=== PATIENT | female | born 1985 | race Caucasian/White ===

== ENCOUNTER 2016-09-23 10:49 | Outpatient (CLI) | payer BC ==
[~2016-09-23] VITALS: Ht 165.1 cm; Wt 91.7 kg
[2016-09-23 11:47] VITALS: Ht 165.1 cm; Wt 91.7 kg
[2016-09-23 11:48] VITALS: BP 120/72; PULSE 95; RESP 20
[2016-09-23] MEDS ORDERED: PNV11TAB PO (11:51)
[2016-09-23 12:53] LABS: ADD UMIC YES; URINE BILIRUBIN (Dip) NEGATIVE (NEGATIVE); URINE BLOOD (Dip) NEGATIVE (NEGATIVE); URINE COLOR LT. YELLOW (YELLOW); URINE GLUCOSE (Dip) NEGATIVE (NEGATIVE); URINE KETONES (Dip) NEGATIVE (NEGATIVE); URINE LEUKOCYTE ESTERASE (Dip) 2+ (NEGATIVE); URINE NITRITE (Dip) NEGATIVE (NEGATIVE); URINE TOTAL PROTEIN (Dip) TRACE (NEGATIVE); URINE UROBILINOGEN (Dip) 1.0 E.U./dL (0.1-1.0)
[2016-09-23 13:02] LABS: BACTERIA,URINE MANY
--- NOTE | 2016-09-23 13:13 | RADRPT ---
PROCEDURE: US OB biophysical profile. CLINICAL INDICATION: decreased movements, PTL TECHNIQUE: Multiple sonographic images of the pelvis were obtained. The images were reviewed on a PACS workstation. COMPARISON: No prior studies are available for comparison. FINDINGS: There is a single viable intrauterine gestation. Cardiac activity is present with 134 beats per min [id number]. There is a vertex presentation. The placenta is posterior. There is no evidence of placental abruption. There is a normal amount of amniotic fluid with an SUSANNAH = 11.4 cm. Biophysical profile: movement 2/2 tone 2/2. breathing 2/2 SUSANNAH 2/2 Total 11/24 RPTAT: AA . IMPRESSION: Normal biophysical profile. . .Wayne Parikh MD, MD Date Time Electronically viewed and signed by .Wayne Parikh MD, MD on 09/23/2016 13:13 .S/
--- NOTE | 2016-09-23 15:55 | TRIAGE ---
OB Triage Datetime Report Generated by CPN: 09/23/2016 15:55 Datetime: 09/23/2016 14:00 Stage of : OB Triage Maternal Assessment Level of Consciousness: Fully Conscious Headache: Denies Nausea/Vomiting: Denies RUQ Epigastric Pain: Denies Labor Evaluation Frequency: 0 Monitor Mode: External Resting Tone [place]: Relaxed Heart Rate FHR Baseline Rate: 125 Monitor Mode: External US FHR Baseline Changes: No Baseline Change Variability: Moderate 6-25 bpm Accelerations: 15X15 Decelerations: None Category: Category I Pain Assessment Pain Scale: 5 Pain Presence: Intermittent Pain Type: Cramping; Contraction Pain Location: Abdomen Pain Goal: 3 Pain Relief Measures: Comfort Measures Exam By: LR RN Datetime: 09/23/2016 13:06 Stage of : OB Triage Maternal Assessment Level of Consciousness: Fully Conscious Headache: Denies Nausea/Vomiting: Denies RUQ Epigastric Pain: Denies Labor Evaluation Frequency: X1 Monitor Mode: External Duration (sec)2399: 40 Quality: Mild Resting Tone [place]: Relaxed Heart Rate FHR Baseline Rate: 125 Monitor Mode: External US FHR Baseline Changes: No Baseline Change Variability: Moderate 6-25 bpm Accelerations: 15X15 Decelerations: None Category: Category I Pain Assessment Pain Scale: 5 Pain Presence: Intermittent Pain Type: Cramping; Contraction Pain Location: Abdomen Pain Goal: 3 Pain Relief Measures: Comfort Measures Exam By: LR RN Datetime: 09/23/2016 12:06 Stage of : OB Triage Maternal Assessment Level of Consciousness: Fully Conscious Headache: Denies Nausea/Vomiting: Denies RUQ Epigastric Pain: Denies Labor Evaluation Frequency: X3 Monitor Mode: External Duration (sec)2399: 90 Quality: Mild Resting Tone [place]: Relaxed Heart Rate FHR Baseline Rate: 125 Monitor Mode: External US FHR Baseline Changes: No Baseline Change Variability: Moderate 6-25 bpm Accelerations: 15X15 Decelerations: None Pain Assessment Pain Scale: 5 Pain Presence: Intermittent Pain Type: Cramping; Contraction Pain Location: Abdomen Pain Goal: 3 Pain Relief Measures: Comfort Measures Exam By: LR RN Datetime: 09/23/2016 11:55 Stage of : OB Triage Datetime: 09/23/2016 11:47 EGA: 36.0 Datetime: 09/23/2016 11:25 Stage of : OB Triage Assessment Type: Triage Maternal Assessment Level of Consciousness: Fully Conscious DTR's/Clonus: DTRs 2+; No Clonus Headache: Denies Blurred Vision: No Respiratory Effort: Unlabored; Regular Rhythm; Equal Expansion Breath Sounds, Left: Clear and Equal Breath Sounds, Right: Clear and Equal Nausea/Vomiting: Denies RUQ Epigastric Pain: Denies Lower Extremities Edema: None Upper Extremities Edema: None Facial Edema: None Fall Risk Assessment History of Falling: (0) No Secondary Diagnosis: (0) No Ambulatory Aid: (0) Bedrest/Nurse Assist IV Therapy: (0) No Gait: (0) Normal/Bedrest/Immobile Mental Status: (0) Oriented to Own Ability Fall Score: 0 Fall Risk Score Definition: No Risk: No action required Labor Evaluation Frequency: 0 Monitor Mode: External Heart Rate FHR Baseline Rate: 125 Monitor Mode: External US FHR Baseline Changes: No Baseline Change Variability: Moderate 6-25 bpm Accelerations: 15X15 Decelerations: None Category: Category I Pain Assessment Pain Scale: 5 Pain Presence: Intermittent Pain Type: Cramping; Contraction Pain Location: Abdomen Pain Goal: 3 Pain Relief Measures: Comfort Measures Vaginal Exam Dilatation (cms): 2.0 Effacement (%): 0 Station: -3 Exam By: LR RN Membrane Status: Intact Vaginal Bleeding: None Datetime: 09/23/2016 10:45 Time of Arrival: 09/23/2016 10:45 Chief Complaint: LOW ABD PRESSURE X 3 DAYS/NOT SURE IF UC'S Movement: Present Contractions: Denies/Absent Rupture of Membranes: Denies Vaginal Bleeding: None Vaginal Discharge: Denies Recent Sexual Intercouse: Denies Abdominal Trauma: Not Applicable Patient Complaints: Other Additional Patient Complaints: TIRED Time Provider Notified: 09/23/2016 12:00 Provider Notified: DR DUDLEY/ALEXANDRE Initial Plan: EFM/[place]/VE /DANYEL COUGHLIN
--- NOTE | 2016-09-23 17:49 | PN ---
Triage Information Date/Time 09/24/2015 Weeks of Gestation 35 weeks and 5 /7 : 6 Para: 4 Diabetes: none Hypertention: none Additional information 31-year-old with IUP at 35 weeks and 5 days presented with complaint of pelvic pressure 5/10 and bilateral lower abdominal pain. She also reports mild dysuria and frequency. Patient denies any decreased movement, vaginal bleeding or leaking of fluid. Objective Vital Signs Date Time Temp Pulse Resp B/P Pulse Ox O2 Delivery O2 Flow Rate FiO2 09/23/16 11:48 98.6 95 20 120/72 Room Air Exam General appearance: Alert and oriented 4 patient does not appear to be in acute distress. Abdomen: Soft, gravid, fundal height consistent with gestational age. No suprapubic tenderness, no CVA tenderness Extremities: No calf tenderness, no click no edema NST: Category 1 Patient had been monitored and does not show any contraction on the monitor during observation. Cervical exam was 2 cm thick and long and midline patient did not show any evidence of labor.. testing was reassuring. BPP: 11/24 UA: Positive for white BC and leukocyte esterase. Results/Medications Results 24 hrs Laboratory Tests Test 09/23/16 12:15 Urine Color LT. YELLOW Urine Clarity CLEAR Urine pH 6.0 Urine Specific [place] 1.025 Urine Ketones NEGATIVE Urine Nitrite NEGATIVE Urine Bilirubin NEGATIVE Urine Urobilinogen 1.0 E.U./dL Urine Leukocyte Esterase 2+ H Urine Microscopic RBC 2-5 Urine Microscopic WBC 10-25 Urine Epithelial Cells MANY Urine Calcium Oxalate Crystals MODERATE Urine Bacteria MANY Urine Hemoglobin NEGATIVE Urine Glucose NEGATIVE Urine Total Protein TRACE Imaging Results PROCEDURE: US OB biophysical profile. CLINICAL INDICATION: decreased movements, PTL TECHNIQUE: Multiple sonographic images of the pelvis were obtained. The images were reviewed on a PACS workstation. COMPARISON: No prior studies are available for comparison. FINDINGS: There is a single viable intrauterine gestation. Cardiac activity is present with 134 beats per minute. There is a vertex presentation. The placenta is posterior. There is no evidence of placental abruption. There is a normal amount of amniotic fluid with an SUSANNAH = 11.4 cm. Biophysical profile: movement 2/2 tone 2/2. breathing 2/2 SUSANNAH 2/2 Total 11/24 RPTAT: AA . IMPRESSION: Normal biophysical profile. . Assessment/Plan IUP at 35 weeks and 5 days Pelvic pressure No evidence of labor. Patient has been observed and monitored for a couple hours. Rare contractions seen on the monitor. No clear evidence of labor or PPROM testing reassuring. Occasional rare contractions seen on the monitor Bilateral lower abdominal pain, related to round ligament pain, advised using binder and rest UA, consistent with likely lower UTI. Will be treated with Keflex Patient will be DC'd home Advise about taking Keflex 4 times daily for 7 days Follow-up with her OB in a couple of days after discharge from triage labor precaution and kick count discussed Return to triage if to be irregular contractions, leaking of fluid, vaginal bleeding or any other concerns. ANTHONY SCHROEDER MD Sep 23, 2016 17:49
== END 2016-09-23 14:08 | disposition home or self-care (01) ==
LOC: OBT 10:49 → L-D 10:50 → OBT 14:08
PROVIDERS: ATTEND Obstetrics & Gynecology
DX: O26.893 Other specified pregnancy related conditions, third trimester (principal); R10.2 Pelvic and perineal pain; O36.8130 Decreased fetal movements, third trimester, not applicable or unspecified; O60.03 Preterm labor without delivery, third trimester; Z3A.35 35 weeks gestation of pregnancy
CPT/HCPCS: 76818; 81001; Z7500; G0463